=== PATIENT | female | born 1945 | race Caucasian/White ===

== ENCOUNTER → 2019-12-22 | Outpatient (CLI) | payer MEDICARE, BC ==
--- NOTE | 2019-12-23 18:32 | RAD ---
DATE: 12/22/2019 11:40 AM EXAM: DIGITAL SCREEN BILAT W/CAD HISTORY: Screening COMPARISON: 10/27/2017 Bilateral full field craniocaudal and mediolateral oblique images were obtained using digital technique. This study was interpreted with the benefit of Computerized Aided Detection (CAD). FINDINGS: Breast Density: HETERO The breast parenchyma Is heterogeneously dense, which could reduce sensitivity of mammography. Breast parenchyma level C No suspicious masses, microcalcifications or architectural distortion is present to suggest malignancy in either breast. The visualized axillae are unremarkable. IMPRESSION: No mammographic evidence of malignancy. BI-RADS CATEGORY: 1 NEGATIVE RECOMMENDED FOLLOW-UP: 12M 12 MONTH FOLLOW-UP Annual screening mammography is recommended, unless clinically indicated sooner based on symptoms or change in physical exam. PQRS compliance statement: Patient information was entered into a reminder system with a target due date for the next mammogram. Mammography is a sensitive method for finding small breast cancers, but it does not detect them all and is not a substitute for careful clinical examination. A negative mammogram does not negate a clinically suspicious finding and should not result in delay in biopsying a clinically suspicious abnormality. "Our facility is accredited by the [employer] Mammography [employer]."
== END | disposition home or self-care (01) ==
LOC: MAMMO 11:31
PROVIDERS: ATTEND Family Medicine
DX: Z12.31 Encounter for screening mammogram for malignant neoplasm of breast (principal)
CPT/HCPCS: 77067

== ENCOUNTER 2020-08-02 17:55 | Emergency (ER) | payer MEDICARE, BC ==
[~2020-08-02] VITALS: Ht 162.6 cm; Wt 61.4 kg
--- NOTE | 2020-08-02 18:14 | PHYS DOC ---
Past History Past Medical History: Arthritis, UTI General Adult HPI: HPI: "..I ve had some blood or looks like blood in my urine... I recently had a UTI .. and was on some meds.. Nitrofurantoin... But never really seemed to work. But tonight has started having a lot more discomfort with urination so decided come in and get checked." Patient is a 74 year old female who presents with above hx and complaints blood in urine. Patient also complains of dysuria. Patient denies any history immunosuppression. Denies travel. Denies specific ill contacts. Normally healthy. Pt. follow s with Dr. Kennedy, patient past has had urinary tract infections responded very well to Cipro but that this caused muscle and tendon pain. Patient does have past medical history of arthritis. No history coagulopathy. Patient has been allergic to sulfa meds in the past. And did have tendon and muscle pain after taking Cipro. Patient did take a Pyridium before arrival. Because of the discomfort on urination. Patient denies any lesions. Patient denies any vaginal discharge. Patient Follows with Dr. Kennedy Review of Systems: Review of Systems: Constitutional: Denies fever or chills Eyes: Denies change in visual acuity HENT: Denies nasal congestion or sore throat Respiratory: Denies cough or shortness of breath Cardiovascular: Denies chest pain or edema GI: Denies abdominal pain, nausea, vomiting, bloody stools or diarrhea : Complains of dysuria Musculoskeletal: Denies back pain or joint pain Integument: Denies rash Neurologic: Denies headache, focal weakness or sensory changes Endocrine: Denies polyuria or polydipsia Lymphatic: Denies swollen glands Psychiatric: Denies depression or anxiety Family History: Family History: Noncontributory to presentation Current Medications: Current Meds: See nursing for home meds Allergies: Allergies: Allergies to sulfa and ciprofloxacin Physical Exam: PE: Constitutional: Well developed, well nourished, moderate acute distress, non- toxic appearance. [] HENT: Normocephalic, atraumatic, bilateral external ears normal, oropharynx moist, no oral exudates, nose normal. [] Eyes: PERRLA, EOMI, conjunctiva normal, no discharge. [] Neck: Normal range of motion, no tenderness, supple, no stridor. [] Cardiovascular:Heart rate regular rhythm, no murmur [] Lungs & Thorax: Bilateral breath sounds clear to auscultation [] Abdomen: Bowel sounds normal, soft, no tenderness, no masses, no pulsatile masses. [] Skin: Warm, dry, no erythema, no rash. [] Back: No tenderness, no CVA tenderness. [] Extremities: No tenderness, no cyanosis, no clubbing, ROM intact, no edema. [] Neurologic: Alert and oriented X 3, normal motor function, normal sensory function, no focal deficits noted. [] Psychologic: Affect anxious, judgement normal, mood normal. [] EKG: EKG: [] Radiology/Procedures: Radiology/Procedures: [] Heart Score: C/O Chest Pain: N/A Risk Factors: Risk Factors: DM, Current or recent (<one month) smoker, HTN, HLP, family history of CAD, obesity. Risk Scores: Score 0 - 3: 2.5% MACE over next 6 weeks - Discharge Home Score 4 - 6: 20.3% MACE over next 6 weeks - Admit for Clinical Observation Score 7 - 10: 72.7% MACE over next 6 weeks - Early Invasive Strategies Course & Med Decision Making: Course & Med Decision Making Pertinent Labs and Imaging studies reviewed. (See chart for details) Discussed options and treatment with patient. Patient declined IM injection of Rocephin. Wishes to try oral meds for her treatment of her urinary tract infection or hematuria. Patient follow-up pending urine culture. Patient return if any concerns. Patient take Keflex 500 mg 3 times a day. After completing a 7-day supply of Keflex to take Diflucan 100 mg daily for 3 days. Patient take vitamin C tablets or push vitamin C drinks frequently throughout the day. May take Tylenol and ibuprofen for pain. Follow-up pending cultures. Return if any concerns. Impression: 1. UTI [] Dragon Disclaimer: Dragon Disclaimer: This electronic medical record was generated, in whole or in part, using a voice recognition dictation system. Departure Departure: Referrals: TURNER KENNEDY (PCP) Scripts Fluconazole (DIFLUCAN) 100 Mg Tablet 100 MG PO DAILY for post antibiotic for 3 Days, #3 TAB Prov: DEVEN FISHMAN MD 08/02/20 Cephalexin (KEFLEX) 750 Mg Capsule 500 MG PO TID for uti for 7 Days, #21 CAP Prov: DEVEN FISHMAN MD 08/02/20 Reggie Disclaimer This chart was dictated in whole or in part using Voice Recognition software in a busy, high-work load, and often noisy Emergency Department environment. It may contain unintended and wholly unrecognized errors or omissions. DEVEN FISHMAN MD Aug 02, 2020 18:14
[2020-08-02] MEDS ORDERED: CEPH750C9 PO (18:37)
[2020-08-02] MEDS ORDERED: FLUC100T7 PO (18:37)
[2020-08-02] MEDS ORDERED: ACETAMINOPHEN 500 MG TABLET PO ONE (18:45)
[2020-08-02] MEDS ORDERED: CEPHALEXIN 250 MG CAPSULE PO ONE (18:45)
[2020-08-02] MEDS ORDERED: PHENAZOPYRIDINE 200 MG TABLET. PO ONE (18:45)
[2020-08-02 18:58] LABS: CLARITY,URINE BLOODY; COLOR,URINE RED
[2020-08-02 18:59] LABS: BACTERIA,URINE FEW /HPF (0-FEW); RBC,URINE >40 /HPF (0-2); SQUAMOUS EPITHELIAL CELL,UR OCC /LPF
[2020-08-02 20:16] VITALS: BP 151/77
== END 2020-08-02 20:15 | disposition home or self-care (01) ==
LOC: ER 17:55
DX: N39.0 Urinary tract infection, site not specified (principal); Z88.2 Allergy status to sulfonamides
CPT/HCPCS: 81001; 87086; 99284

== ENCOUNTER 2020-11-09 07:00 | Emergency (ER) | payer MEDICARE, BC ==
[~2020-11-09] VITALS: Ht 162.6 cm; Wt 58.6 kg
[~2020-11-09 07:00] MED LIST: CEPH750C9 PO; FLUC100T7 PO
[2020-11-09 07:52] VITALS: BP 148/104
--- NOTE | 2020-11-09 08:12 | PHYS DOC ---
Past History Past Medical History: Arthritis, Hypertension, UTI Smoking: Non-smoker Alcohol Use: None Drug Use: None Adult General Chief Complaint Chief Complaint: SHORTNESS OF BREATH HPI HPI Patient is a 75-year-old female presenting for fatigue. This is an acute on chronic issue. She is well covered in her outpatient setting with primary care physician. Was just seen 72 hours ago and had comprehensive work-up in clinic that involved comprehensive labs and EKG that were grossly unremarkable. She has history of anxiety and suspect depression for which she is on BuSpar and recently started on citalopram at that same visit. She reports this made her nauseous with generalized abdominal discomfort and feeling of feeling more fatigue so she stopped this after 48 hours of use. She is scheduled for a CT chest and abdomen pelvis next week. No recent major changes in health, no fever, vision changes, chest pain, ripping or tearing sensation in chest, shortness of breath, cough, abdominal pain, dysuria, changes in motor or sensory or neurologic function. She does admit left-sided neck pain and subsequent headache. States she has history of outpatient treatment of this tension type headache requiring trigger point injections in the past. She has not taken her home medications today Review of Systems Review of Systems Fourteen body systems of review of systems have been reviewed. See HPI for pertinent positives and negative responses, other urban all other systems are negative, non-pertinent or non-contributory Allergies Allergies Allergies Coded Allergies Type Severity Reaction Last Updated Verified Sulfa (Sulfonamide Antibiotics) Allergy Unknown 08/02/20 Yes ciprofloxacin Allergy Unknown 08/02/20 Yes Physical Exam Physical Exam Constitutional: Pt is oriented to person, place, and time. Pt appears well-developed and well- nourished. HEENT: Head: Normocephalic and atraumatic. External ears unremarkable Conjunctivae and EOM are normal. Pupils are equal, round, and reactive to light. Oropharynx is clear and moist. No hematomas or lacerations or abrasions to face or scalp OP clear, no blood, no malocclusion, dentition intact Nares clear, no nasal septal hematoma Midface stable Neck: C-spine midline nontender, no step-offs, no meningeal signs Cardiovascular: Normal rate, regular rhythm and normal heart sounds. Pulmonary/Chest: Effort normal and breath sounds normal. No respiratory distress. No wheezes. CTA bilaterally Abdominal: Soft. Bowel sounds are normal. Pt exhibits no distension. There is no tenderness. Musculoskeletal: No bony tenderness to extremities, no deformities, full ROM extremities Chest wall stable Pelvis stable and non-tender No vertebral TTP and spine without stepoffs Neurological: Pt is alert and oriented to person, place, and time. Moving all extremities willfully, able to wiggle all fingers and toes Alert and oriented x 3 Motor and sensory function intact Skin: Skin is warm and dry. No abrasions, no lacerations Psychiatric: Anxious affect, depressed mood Current Patient Data Vital Signs Vital Signs Date Time Temp Pulse Resp B/P (MAP) Pulse Ox O2 Delivery O2 Flow Rate FiO2 11/09/20 07:52 98.1 60 16 148/104 96 Vital Signs Date Time Temp Pulse Resp B/P (MAP) Pulse Ox O2 Delivery O2 Flow Rate FiO2 11/09/20 07:52 98.1 60 16 148/104 96 EKG EKG [] Radiology/Procedures Radiology/Procedures [] Heart Score C/O Chest Pain: No Risk Factors: Risk Factors: DM, Current or recent (<one month) smoker, HTN, HLP, family history of CAD, obesity. Risk Scores: Risk Factors: DM, Current or recent (<one month) smoker, HTN, HLP, family history of CAD, obesity. Course & Med Decision Making Course & Med Decision Making ABCs unremarkable. Patient has had extensive outpatient work-up so far with primary care physician including laboratory analysis, EKG and radiographs, she is pending outpatient CT chest abdomen pelvis this upcoming week. There has been no major changes in home medication regiment, life stressors, trauma etc. I discussed with patient little indication at present given asymptomatic state other than fatigue for further diagnostic work-up in ER setting. I offered repeating certain tests such as labs and EKG to ensure no potentially serious abnormality is going on but patient deferred. I acknowledged her complaints and symptoms, I discussed that I have concerns she is suffering from depression demonstrating classic symptoms in an elderly individual. She is on BuSpar and recently started an SSRI which is appropriate, recent side effects might be due to that? I advised her to continue taking and discuss self discontinuing with primary care physician at a later date but that initial side effects that are minor in nature are to be expected. Regarding patient's headache, I disclose she is suffering from a most likely tension type headache, I disclosed I could do further work-up such as CT head imaging but patient deferred as "it is not that bad ". Ultimately, I stressed need for close outpatient follow-up to review today's ER visit and reassured her that she is on the right track to "finding an answer". Strict return precautions were also discussed at length with good understanding by patient. Patient voiced understanding and agreement with the plan. Patient knows to come back for repeat evaluation if concerning signs or symptoms present prior to outpatient follow-up. Hemodynamically stable, ambulatory and well-appearing at time of disposition. Dragon Disclaimer Dragon Disclaimer This electronic medical record was generated, in whole or in part, using a voice recognition dictation system. Departure Departure: Impression: Primary Impression: Weakness Additional Impression: Fatigue Disposition: HOME / SELF CARE / HOMELESS Condition: STABLE Referrals: TURNER KENNEDY (PCP) Additional Instructions: As discussed prior to your departure, your vitals were concerning for high blood pressure but you have not taken your blood pressure medication today. Your physical exam was nonconcerning for any emergent or surgical issues. We reviewed your headache that is likely tension in nature, I would continue ibuprofen and/or NSAID use for pain in addition to previously instructed neck exercises and heating pad. Regarding your weakness/fatigue, it sounds like your primary care has done a fantastic job drawing necessary labs and scheduling outpatient imaging tests. I reviewed and offered repeating certain aspects of said work-up such as labs, imaging and other diagnostic studies in ER setting but you deferred. As such, I suggest you contact your outpatient primary care physician to review ER visit today and need for close outpatient follow-up. Please attend your scheduled imaging tests next week. If any concerning signs or symptoms present prior to outpatient follow-up please do not hesitate to come back for repeat evaluation. It was a pleasure to take care of you and I wish you the best going for [employer] MECCA BETTENCOURT DO Nov 09, 2020 08:12
== END 2020-11-09 08:18 | disposition home or self-care (01) ==
LOC: ER 07:00
DX: R53.1 Weakness (principal); R53.83 Other fatigue; I10 Essential (primary) hypertension; Z88.1 Allergy status to other antibiotic agents; Z88.2 Allergy status to sulfonamides
CPT/HCPCS: 99281

== ENCOUNTER → 2020-12-28 | Outpatient (CLI) | payer MEDICARE, BC ==
--- NOTE | 2020-12-28 14:11 | RAD ---
History: 75-year-old asymptomatic female patient presents for routine screening mammogram. PROCEDURE: 2-D craniocaudal and mediolateral oblique digital mammograms were obtained. The images we re also evaluated with computer-aided detection and the CAD results were analyzed. COMPARISON:[Bilateral mammogram from 02/21/2020 ] FINDINGS: The breast tissue is heterogeneously dense, which could obscure detection of small masses (density le mckenzie C). There are no suspicious masses, suspicious microcalcifications or areas of architectural dist ortion.Benign stable calcifications are seen in both breasts IMPRESSION: Benign mammogram. Patient information was entered into the [employer] reminder system with a target due date for the next screening mammogram . Routine annual screening mammogram in one year ad vised. BI-RADS Category 2: Benign. Your mammogram demonstrates that you have dense breast tissue, which could hide abnormalities, and if you have other risk factors for breast cancer that have been identified, you might benefit from supp lemental screening tests that may be suggested by your ordering physician. Dense breast tissue, in a nd of itself, is a relatively common condition. This information is not provided to cause undue conc lorna, but rather to raise your awareness and to promote discussion with your physician regarding the p resence of other risk factors, in addition to dense breast tissue. A report of your mammography resul ts will be sent to you and your physician. You should contact your physician if you have any questio ns or concerns regarding this report. A mammogram does not have 100% sensitivity and therefore a negative imaging study should not delay fu rther work up of a suspicious abnormality. "Our facility is accredited by the [employer] Mammography Program." Electronically signed by: Radha Martin MD (12/28/2020 2:08 PM) [email or web address]
== END ==
LOC: MAMMO 09:10
PROVIDERS: ATTEND Family Medicine
DX: Z12.31 Encounter for screening mammogram for malignant neoplasm of breast (principal)
CPT/HCPCS: 77067